=== PATIENT | female | born 1980 | race Caucasian/White ===

== ENCOUNTER 2017-07-15 05:46 | Day surgery (SDC) | payer OTHER ==
[2017-07-06 11:30] VITALS: BMI 33.0
[2017-07-15] MEDS ORDERED: ePHEDrine SULFATE 50 MG/1 ML AMPULE ONE (07:12)
[2017-07-15] MEDS ORDERED: SUCCINYLCHOLINE CHLORIDE 200 MG/10 ML VIAL ONE (07:13)
[2017-07-15] MEDS ORDERED: PROPOFOL 120 ML ONE (07:13)
[2017-07-15] MEDS ORDERED: MIDAZOLAM HCL 2 MG/2 ML SINGLE DOSE VIAL ONE (07:13)
[2017-07-15] MEDS ORDERED: LIDOCAINE HCL 2% (20ML MULTI-DOSE VIAL) NR ONE (07:18)
[2017-07-15] MEDS ORDERED: LIDOCAINE HCL 2% (50ML VIAL) INF ONE (08:07)
[2017-07-15] MEDS ORDERED: ONDANSETRON 4 MG/2 ML VIAL IVPUSH PRN (08:25)
[2017-07-15] MEDS ORDERED: oxyCODONE HCL 5 MG TABLET PO PRN ×2 (08:25)
[2017-07-15] MEDS ORDERED: PROMETHAZINE HCL 25 MG/1 ML VIAL IVPB PRN (08:25)
[2017-07-15 08:51] VITALS: BP 110/65; PULSE 56; TEMP 98
--- NOTE | 2017-07-15 09:14 | OP ---
DATE OF OPERATION: 07/15/2017 PREOPERATIVE DIAGNOSIS: Right long finger mass. POSTOPERATIVE DIAGNOSIS: Right long finger mass. OPERATIVE PROCEDURE: Right long finger mass excision. SURGEON: Garcia Herman MD ANESTHESIA: Local with sedation. COMPLICATIONS: None. ESTIMATED BLOOD LOSS: Minimal. INDICATION FOR PROCEDURE: The patient is a 37-year-old female with the above finding indicated for operative treatment. Risks, benefits, alternatives were discussed with the patient at length. Proper informed consent was obtained. DESCRIPTION OF PROCEDURE: After preoperative identification of patient and correct operative site, patient was brought to the operating room and placed supine on the table with all prominences well padded. Sedation was given by the anesthesiologist. Local anesthesia was given, 2% lidocaine. Right upper extremity was prepped and draped in the usual sterile fashion. A well-padded tourniquet was placed over the sterile prep. Esmarch bandage used to exsanguinate right upper extremity. Tourniquet was inflated to 250 mmHg. A V-shaped incision was made over the proximal aspect of the proximal phalanx volarly. Incision was taken sharply through the skin with blunt and sharp dissection through subcutaneous tissues. Mass was found to be a cystic structure emanating off the flexor tendon sheath, which was excised in whole and sent for pathologic evaluation, taking care to protect the neurovascular structures. Wound was irrigated with saline and repaired with a 5-0 nylon interrupted suture. Sterile dressings were applied. Patient was brought to the recovery room in stable condition. She tolerated the procedure well. GARCIA HERMAN M.D. MONIQUE/[id number]
--- NOTE | 2017-07-17 16:49 | PATH ---
Surgical Pathology Report Patient Name: MARIA R FERMIN [facility]. Rec. #: [id number] /Age/Gender: 1980 (Age: 37) / F Account: [id number] Location: [facility] Taken: 07/15/2017 Received: 07/15/2017 Reported: 07/17/2017 Physicians: Garcia Woodward M.D. Specimen(s) Received RIGHT LONG FINGER MASS Clinical History Right long finger mass Final Diagnosis LONG FINGER, RIGHT, MASS, EXCISION: GANGLION CYST. Electronically Signed Ayleen Gomez M.D. Gross Description Received in formalin, labeled "right long finger mass" is a white-brown rubbery irregular portion of soft tissue measuring 0.4 x 0.3 x 0.4 cm. The outer surface of the specimen is inked in blue. Specimen is bisected and entirely submitted in toto in one cassette. ROMAIN/07/16/2017 dottie/07/16/2017
== END 2017-07-15 08:56 | disposition home or self-care (01) ==
LOC: FASU 05:46
PROVIDERS: ATTEND Orthopaedic Surgery Hand Surgery
PROC: 0LB70ZZ Excision of Right Hand Tendon, Open Approach (ICD-10-PCS; principal; 2017-07-15 07:59)
DX: M67.441 Ganglion, right hand (principal)
CPT/HCPCS: 84703; 88304-TC